=== PATIENT | male | born 1950 | race Caucasian/White ===

== ENCOUNTER → 2020-03-29 | Outpatient (CLI) | payer MEDICARE | LOC: RAD 07:52 | DX: R13.10 Dysphagia, unspecified (principal); K44.9 Diaphragmatic hernia without obstruction or gangrene | CPT/HCPCS: 74220 ==

== ENCOUNTER 2020-09-19 10:37 | Emergency (ER) | payer MEDICARE ==
[2020-09-19 11:54] LABS: HEMOGLOBIN 14.6 gm/dl (14.0-17.5); RED BLOOD COUNT 4.81 M/UL (4.20-5.50); WHITE BLOOD COUNT 7.1 K/UL (4.5-11.0)
[2020-09-19 12:18] LABS: BUN/CREATININE RATIO 11 (0-10)
[2020-09-27] MEDS ORDERED: CRESTOR 10 MG T10 MG PO (06:24)
[2020-09-27] MEDS ORDERED: SYNTHROID75 MCG PO (06:24)
[2020-09-27] MEDS ORDERED: AVODART 0.5 MG0.5 MG PO (06:24)
== END 2020-09-19 16:08 | disposition home or self-care (01) ==
LOC: ER1 10:37
PROVIDERS: Physician Assistant
DX: R10.31 Right lower quadrant pain (principal); R10.32 Left lower quadrant pain; E78.5 Hyperlipidemia, unspecified
CPT/HCPCS: 80053; 81001; 85025; 99284; Q9967

== ENCOUNTER → 2020-09-27 | Day surgery (SDC) | payer MEDICARE ==
[~2020-09-27] MED LIST: AVODART 0.5 MG0.5 MG PO; CRESTOR 10 MG T10 MG PO; SYNTHROID75 MCG PO
== END | disposition home or self-care (01) ==
LOC: OR 06:01
PROVIDERS: Internal Medicine Gastroenterology
PROC: 0DBL8ZX Excision of Transverse Colon, Via Natural or Artificial Opening Endoscopic, Diagnostic (ICD-10-PCS; principal; 2020-09-27 08:00)
DX: Z12.11 Encounter for screening for malignant neoplasm of colon (principal); K64.1 Second degree hemorrhoids; D12.3 Benign neoplasm of transverse colon; K59.09 Other constipation; E66.3 Overweight; Z68.29 Body mass index [BMI] 29.0-29.9, adult; Z20.822 Contact with and (suspected) exposure to COVID-19; Z86.010 Personal history of colon polyps; Z88.0 Allergy status to penicillin; Z79.899 Other long term (current) drug therapy
CPT/HCPCS: J2704